=== PATIENT | male | born 1980 | race Caucasian/White ===

== ENCOUNTER 2023-07-24 13:37 | Emergency (ER) | payer OTHER ==
[~2023-07-24] VITALS: Ht 175.3 cm; Wt 90.7 kg
[~2023-07-24 13:37] MED LIST: AMOX875 PO; Percocet 5-3251 EACH PO
[2023-07-24 14:05] VITALS: BP 160/102
== END 2023-07-24 15:17 | disposition home or self-care (01) ==
LOC: ER 13:37
DX: S76.312A Strain of muscle, fascia and tendon of the posterior muscle group at thigh level, left thigh, initial encounter (principal); F17.210 Nicotine dependence, cigarettes, uncomplicated; X50.3XXA Overexertion from repetitive movements, initial encounter
CPT/HCPCS: 73562-LT; 99283-25

== ENCOUNTER 2023-08-01 13:34 | Emergency (ER) | payer OTHER ==
[~2023-08-01] VITALS: Ht 175.3 cm; Wt 90.7 kg
[2023-08-01 13:57] VITALS: BP 127/87
== END 2023-08-01 15:02 | disposition home or self-care (01) ==
LOC: ER 13:34
DX: K20.90 Esophagitis, unspecified without bleeding (principal); F45.8 Other somatoform disorders; F17.210 Nicotine dependence, cigarettes, uncomplicated
CPT/HCPCS: 99282